=== PATIENT | male | born 1965 | race Caucasian/White ===

== ENCOUNTER 2023-03-14 14:01 | Outpatient (CLI) | payer OTHER, SELFPAY | END 2023-03-14 14:02 | disposition home or self-care (01) | PROVIDERS: PCP Plastic Surgery; Visit Provider Nurse Practitioner Family | DX: H90.3 Sensorineural hearing loss, bilateral (principal) | CPT/HCPCS: 92557; 92567 ==

== ENCOUNTER 2023-04-30 07:30 | Outpatient (RCR) | payer OTHER, SELFPAY | END 2023-06-25 23:59 | disposition home or self-care (01) | LOC: ANHAUDASC 07:30 | PROVIDERS: PCP Plastic Surgery; Visit Provider Plastic Surgery | DX: Z46.1 Encounter for fitting and adjustment of hearing aid (principal) | CPT/HCPCS: 99199; V5261 ==

== ENCOUNTER 2024-05-12 07:10 | Outpatient (CLI) | payer OTHER, SELFPAY ==
--- OUTSIDE RECORDS SUMMARY | 2024-05-12 07:15 | XMS_ITS | Clinical Summary ---
Author Organization [facility] Address [address] [place] [address] Care Team Providers Care Chief Operator Lock Tender Name Role Phone Edith Patricia NP Primary Care Provider [phone] Allergies No known active allergies Medications coenzyme Q10 10 mg capsule Take by mouth Active multivitamin with minerals tablet Take 1 tablet by mouth daily Active cholecalciferol (VITAMIN D-3) 25 mcg (1,000 unit) tablet Take 1 tablet (1,000 Units total) by mouth daily Active ezetimibe (ZETIA) 10 mg tabletIndications:Pure hypercholesterolemia TAKE 1 TABLET(10 MG) BY MOUTH DAILY 90 tablet 3 12/11/19 23 Active rosuvastatin (CRESTOR) 20 mg tabletIndications:Pure hypercholesterolemia TAKE 1 TABLET(20 MG) BY MOUTH DAILY 90 tablet 2 04/29/19 24 Active valsartan (DIOVAN) 320 mg tablet TAKE 1 TABLET(320 MG) BY MOUTH DAILY 90 tablet 2 04/29/19 24 Active Active Problems Problem Noted Date Diagnosed Date Pure hypercholesterolemia 07/29/2022 Lung nodule 01/28/2022 Vitamin D deficiency 01/28/2022 Diastolic dysfunction 01/16/2021 Nonrheumatic pulmonary valve insufficiency 01/16 Hyperlipidemia 07/15/2018 Right ventricular dilation 07/15/2018 Nonrheumatic aortic valve insufficiency 07/16/19 19 Non-rheumatic mitral regurgitation 04/08/2018 Overview (07/14/2018): Trace on echocardiogram done on 02/25/2018 Mild on echocardiogram done on 02/25/2018 Dyslipidemia 02/18/2018 Overview (07/14/2018): severe dyslipidemia, improved on rosuvastatin 20 mg daily, not quite at goal on that dose. Abnormal ECG 02/18/2018 Overview (07/14/2018): With possible old inferior infarction on his EKG done on 02/02/2018 with a normal treadmill myocardial perfusion stress test done on 03/02/2018 with clinically negative, no ischemic EKG changes and no evidence of ischemia or infarction on Myoview images wi Syncope and collapse 02/18/2018 Overview (07/14/2018): 3 episodes in the past 8 years with the last one being about a year ago I'll occurred on airplanes when he tries to reduce his oral intake before going on an airplane likely due to dehydration versus hypoglycemia. Has never occurred when not on an airplan Essential (primary) hypertension 02/18/2018 Overview (07/14/2018): Blood pressure is elevated here my office but his monitor for the most part is fairly accurate and his blood pressure readings at home are normal so for now will not treat his elevated blood pressure as his blood pressure readings at home with a validated Medical History Medical History Date Comments Hyperlipidemia Syncope Family History Medical History Relation Name Comments Diabetes Father Stroke Mother Relation Name Status Comments Father Mother Social History Tobacco Use Types Packs/Day Years Used Date Smoking Tobacco: Never Smokeless Tobacco: Never Tobacco Cessation:Counseling Given: Not Answered Alcohol Use Standard Drinks/Week Comments Yes 0 (1 standard drink = 0.6 oz pur e alcohol) rarely Personal Safety Answer Date Recorded Getting School Help Needed Not on file 02/24 Sex and Gender Information Value Date Recorded Sex Assigned at Not on file Legal Sex 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 Gender Identity Not on file Sexual Orientation Not on file Obstetrics History Last Filed Vital Signs Vital Sign Reading Time Taken Comments Blood Pressure 142/84 02/10/2023 9:16 AM MATH TEACHER Pulse 72 02/10/2023 9:16 AM MATH TEACHER Temperature - - Respiratory Rate - - Oxygen Saturation 97% 12/18/2022 3:46 PM CDT Inhaled Oxygen Concentration - - Weight 93.4 kg (205 lb 12.8 oz) 12/18/2022 3:46 PM CDT Height 182.9 cm (6') 07/29/2022 4:12 PM CDT Body Mass Index 27.91 07/29/2022 4:12 PM CDT Plan of Treatment Health Maintenance Due Date Last Done Comments Colon Cancer Screening-Colonoscopy 1965 Depression Screening 1965 Hepatitis C Screening 1965 Prostate Cancer Screening-PSA 1965 Hepatitis B Screening 1983 Regular Well Visit/Exam 18-64 1983 Zoster Vaccine (1 of 2) 2015 Covid-19 Vaccine (2 - 2023-2 5 season) 2023 05/19/2020 Influenza Vaccine (#1) 2023 DTaP/Tdap/Td Vaccine (2 - Tdap) 10/05/2030 Pneumococcal vaccine <65 Aged Out No longer eligible based on patient's age to complete this topic Insurance [facility] Care Teams Chief Operator Lock Tender Relationship Specialty Start Date End Date Edith Patricia NP [address] [place] [id number] PCP - General Nurse Practitioner 04/19/20
--- OUTSIDE RECORDS SUMMARY | 2024-05-12 07:15 | XMS_ITS | Encounter Summary ---
Author Organization [facility] Care Team Providers Care Candle Maker Name Role Phone Lanie Carey TV TECHNICIAN Primary Care Provi raúl Edith Patricia NP Primary Care Provider [phone] Encounter Details Date Type Department Care Team (Latest Contact Info) Description 04/08/2018 Orders Only [facility]INCONV Provider, MD [facility] [address] [place] [id number] Social History Tobacco Use Types Packs/Day Years Used Date Smoking Tobacco: Never Assessed Sex and Gender Information Value Date Recorded Sex Assigned at Not on file Legal Sex Male 1:06 PM BEEF SELECTOR Gender Identity Not on file Sexual Orientation Not on file documented as of this encounter Plan of Treatment Not on file documented as of this encounter Procedures Procedure Name Priority Date/Time Associated Diagnosis Comments PROCEDURE - RESULT 04/15/2018 12 :00 AM BEEF SELECTOR documented in this encounter Results * PROCEDURE - RESULT (04/15/2018 12:00 AM BEEF SELECTOR) Narrative 04/15/2018 12:00 AM BEEF SELECTOR Ordered by an unspecified provider. Historical Provider Final Res ult documented in this encounter Visit Diagnoses Not on filedocumented in this encounter Care Teams Candle Maker Relationship Specialty Start Date End Date Lanie Carey NP [address] [place] [address] PCP - General Nurse Practitioner 08/06/18 04/18/20 Edith Patricia NP [address] [place] [id number] PCP - General Nurse Practitioner 04/19/20 documented as of this encounter
--- OUTSIDE RECORDS SUMMARY | 2024-05-12 07:15 | XMS_ITS | Data Portability ---
Author Organization [place] - [facility], Nanette Huggins Address [address] [place] [address] Assessment Encounter Date Assessment Date Assessment LastModified by Organization Details LastModified Time 01/01/2024 01/01/2024 Patient presents today for lab noted below ordered by: Dr. Aisha Jenkins Procedure explained and patient verbalized understanding of the procedure and labs to be drawn today. Venipuncture performed using aseptic technique in the side of left antecubital. Venipuncture successful on the first attempt without complications. If complications: Dressing applied to the site(s) and pressure held. No signs or symptoms of venipuncture complications observed. Lab results sent to Ordering Provider. Patient left ambulatory with no complaints of pain or discomfort voiced. Tubes drawn: 1 [place]/serum tube [id number] Not available 01/01/2024 14:10:48 01/16/2024 01/16/2024 Patient presents today for lab noted below ordered by: Dr. Aisha Jenkins Procedure explained and patient verbalized understanding of the procedure and labs to be drawn today. Venipuncture performed using aseptic technique in the side of left antecubital. Venipuncture successful on the first attempt without complications. If complications: Dressing applied to the site(s) and pressure held. No signs or symptoms of venipuncture complications observed. Lab results sent to Ordering Provider. Patient left ambulatory with no complaints of pain or discomfort voiced. Tubes drawn: 2 SST tiger tubes Not available 01/16/2024 08:31:51 04/15/2024 04/15/2024 Patient presents today for lab noted below ordered by: Procedure explained and patient verbalized understanding of the procedure and labs to be drawn today. Venipuncture performed using aseptic technique in the side of left antecubital. Venipuncture successful on the first attempt without complications. If complications: Dressing applied to the site(s) and pressure held. No signs or symptoms of venipuncture complications observed. Lab results sent to Ordering Provider. Patient left ambulatory with no complaints of pain or discomfort voiced. [id number] Not available 04/15/2024 08:39:38 Plan of Treatment Reminders Order Date Submit Date Provider Last Modified By Organization Details Last Modified Time Details Appointments None recorded. Lab CBC w/ auto diff 2024 025 [place] [facility] [address] [place], [address], 5 16:08:27 lipid panel, serum 2024 025 [place] [facility] [address] [place], [address], 5 16:08:29 unlisted lab - TSH w/reflex 2024 025 [place] [facility] [address] [place], [address], 5 16:08:33 vitamin D, 25-hydroxy, total, serum 2024 025 [place] [facility] [address] [place], [address], 5 16:08:32 uric acid, serum or plasma 2024 025 [place] [facility] [address] [place], [address], 5 16:08:33 CMP, serum or plasma 2024 025 [place] [facility] [address] [place], [address], 5 16:08:28 urinalysis, complete 2024 025 [facility]), [address] [place], [address], 5 16:08:28 vitamin B12, serum 2024 025 [facility]), [address] [place], [address], 5 16:08:34 folate, serum 2024 025 [facility]), [address] [place], [address], 5 16:08:31 magnesium, serum or plasma 2024 025 [facility]), [address] [place], [address], 5 16:08:35 hemoglobin (Hb), blood [email or web address]), [address] [place], [address], 5 08:01:00 Hepatitis C IgG Ab, qual, serum 2024 025 [facility]), [address] [place], [address], 5 16:08:30 PSA, total, serum or plasma 2024 025 [facility]), [address] [place], [address], 5 16:08:31 lipid panel, serum 2023 024 [facility]), [address] [place], [address], 4 09:08:25 CMP, serum or plasma 2023 024 [facility]), [address] [place] [address], [address], 4 09:08:25 BMP, serum or plasma 2023 024 [email or web address] [facility]), [address] [facility], [place], [address], 4 08:03:39 Referral None recorded. Procedures None recorded. Surgeries None recorded. Imaging None recorded. Medication Orders None recorded. Patient TargetsNo targets recorded. Patient InstructionsNo instructions recorded. Reason for Referral None Reported. Results Created Date Observation Date Name Description Value Unit Range Abnormal Flag Note LastModifiedBy Organization Detail LastModifiedTime 01/01/2001/02/2024 BMP7+ EGFR glucose 158 mg/dL 70-99 above high normal Not Available [facility] ([facility]) [address] [facility], [place], [address], 01/02/2024 07:08:22 01/01/2001/02/2024 BMP7+ EGFR BUN 17 mg/dL 6-24 normal Not Available [facility] ([facility]) [address] [facility], [place], [address], 01/02/2024 07:08:22 01/01/2001/02/2024 BMP7+ EGFR creatinine 1.26 mg/dL 0.76-1 .27 normal Not Available [facility] ([facility]) [address] [place], [address], 01/02/2024 07:08:22 01/01/2001/02/2024 BMP7+ EGFR eGFR 66 mL/mi n/1.7 3 >59 normal Not Available [facility] ([facility]) [address] [place], [address], 01/02/2024 07:08:22 01/01/2001/02/2024 BMP7+ EGFR sodium 141 mmol/ L 134-14 4 normal Not Available [facility] ([facility]) [address] [place], [address], 01/02/2024 07:08:22 01/01/20 24 01/02/2024 BMP7+ EGFR potassium 3.8 mmol/ L 3.5-5. 2 normal Not Available [facility] ([facility]) [address] [facility] [place], [address], 01/02/2024 07:08:22 01/01/20 24 01/02/2024 BMP7+ EGFR chloride 101 mmol/ L 96-106 normal Not Available [facility] ([facility]) [address] [facility] [place], [address], 01/02/2024 07:08:22 01/01/20 24 01/02/2024 BMP7+ EGFR carbon dioxide, total 26 mmol/ L 20-29 normal Not Available [facility] ([facility]) [address] [place], [address], 01/02/2024 07:08:22 01/16/20 24 01/17/2024 CMP14 +EGFR glucose 119 mg/dL 70-99 above high normal Not Available [facility] ([facility]) [address] [place], [address], 01/17/2024 09:08:25 01/16/20 24 01/17/2024 CMP14 +EGFR BUN 25 mg/dL 6-24 above high normal Not Available [facility] ([facility]) [address] [place], [address], 01/17/2024 09:08:25 01/16/20 24 01/17/2024 CMP14 +EGFR creatinine 1.30 mg/dL 0.76-1 .27 above high normal Not Available [facility] ([facility]) [address] [place], [address], 01/17/2024 09:08:25 01/16/20 24 01/17/2024 CMP14 +EGFR eGFR 64 mL/mi n/1.7 3 >59 normal Not Available [facility] ([facility]) [address] [facility], [place], [address], 01/17/2024 09:08:25 01/16/20 24 01/17/2024 CMP14 +EGFR BUN/creatini ne ratio 19 9-20 normal Not Available [facility]) [address] [facility], [place], [address], 01/17/2024 09:08:25 01/16/20 24 01/17/2024 CMP14 +EGFR sodium 143 mmol/ L 134-14 4 normal Not Available [facility] ([facility]) [address] [facility], [place], [address], 01/17/2024 09:08:25 01/16/20 24 01/17/2024 CMP14 +EGFR potassium 4.4 mmol/ L 3.5-5. 2 normal Not Available [facility] ([facility]) [address] [facility], [place], [address], 01/17/2024 09:08:25 01/16/20 24 01/17/2024 CMP14 +EGFR chloride 104 mmol/ L 96-106 normal Not Available [facility] ([facility]) [address] [facility], [place], [address], 01/17/2024 09:08:25 01/16/20 24 01/17/2024 CMP14 +EGFR carbon dioxide, total 23 mmol/ L 20-29 normal Not Available [facility] ([facility]) [address] [place], [address], 01/17/2024 09:08:25 01/16/20 24 01/17/2024 CMP14 +EGFR calcium 9.2 mg/dL 8.7-10 .2 normal Not Available [facility] ([facility]) [address] [place], [address], 01/17/2024 09:08:25 11/01/01/17/2024 CMP14 +EGFR protein, total 6.6 g/dL 6.0-8. 5 normal Not Available [facility] ([facility]) [address] [facility] [place], [address], 01/17/2024 09:08:25 01/16/20 24 01/17/2024 CMP14 +EGFR albumin 4.5 g/dL 3.8-4. 9 normal Not Available [facility] ([facility]) [address] [facility] [place], [address], 01/17/2024 09:08:25 01/16/20 24 01/17/2024 CMP14 +EGFR globulin, total 2.1 g/dL 1.5-4. 5 Not Available [facility] ([facility]) [address] [facility] [place], [address], 01/17/2024 09:08:25 01/16/20 24 01/17/2024 CMP14 +EGFR bilirubin, total 0.5 mg/dL 0.0-1. 2 normal Not Available [facility] ([facility]) [address] [facility] [place], [address], 01/17/2024 09:08:25 01/16/20 24 01/17/2024 CMP14 +EGFR alkaline phosphatase 87 IU/L 44-121 normal Not Available [facility]) [address] [facility] [place], [address], 01/17/2024 09:08:25 01/16/20 24 01/17/2024 CMP14 +EGFR AST (SGOT) 27 IU/L 0-40 normal Not Available [facility] ([facility]) [address] [facility] [place], [address], 01/17/2024 09:08:25 01/16/20 24 01/17/2024 CMP14 +EGFR ALT (SGPT) 28 IU/L 0-44 normal Not Available [facility] ([facility]) [address] [facility], [place], [address], 01/17/2024 09:08:25 01/16/20 24 01/17/2024 LIPID PANEL cholesterol, total 165 mg/dL 100-19 9 normal Not Available [facility] ([facility]) [address] [facility], [place], [address], 01/17/2024 09:08:25 01/16/20 24 01/17/2024 LIPID PANEL triglyceride s 71 mg/dL 0-149 normal Not Available [facility] ([facility]) [address] [place], [address], 01/17/2024 09:08:25 01/16/20 24 01/17/2024 LIPID PANEL HDL cholesterol 60 mg/dL >39 normal Not Available [facility]) [address] [place], [address], 01/17/2024 09:08:25 01/16/20 24 01/17/2024 LIPID PANEL VLDL cholesterol olga 14 mg/dL 5-40 Not Available [facility] ([facility]) [address] [place], [address], 01/17/2024 09:08:25 01/16/20 24 01/17/2024 LIPID PANEL LDL chol calc ([facility]) 91 mg/dL 0-99 Not Available [facility]) [address] [facility], [place], [address], 01/17/2024 09:08:25 01/16/20 24 01/17/2024 LIPID PANEL 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 Not Available [facility] ([facility]) [address] [place], [address], 01/17/2024 09:08:25 04/15/19 25 04/16/2024 CBC WITH DIFFE RENTI AL/PL ATELE T WBC 4.6 x10e3 /uL 3.4-10 .8 normal Not Available [facility] ([facility]) [address] [facility], [place], [address], 04/16/2024 16:08:27 04/15/19 25 04/16/2024 CBC WITH DIFFE RENTI AL/PL ATELE T RBC 5.22 x10e6 /uL 4.14-5 .80 normal Not Available [facility] ([facility]) [address] [facility], [place], [address], 04/16/2024 16:08:27 04/15/19 25 04/16/2024 CBC WITH DIFFE RENTI AL/PL ATELE T hemoglobin 15.5 g/dL 13.0-1 7.7 normal Not Available [facility] ([facility]) [address] [facility], [place], [address], 04/16/2024 16:08:27 04/15/19 25 04/16/2024 CBC WITH DIFFE RENTI AL/PL ATELE T hematocrit 47.5 % 37.5-5 1.0 normal Not Available [facility] ([facility]) [address] [place], [address], 04/16/2024 16:08:27 04/15/19 25 04/16/2024 CBC WITH DIFFE RENTI AL/PL ATELE T MCV 91 fL 79-97 normal Not Available [facility] ([facility]) [address] [place], [address], 04/16/2024 16:08:27 04/15/19 25 04/16/2024 CBC WITH DIFFE RENTI AL/PL ATELE T MCH 29.7 pg 26.6-3 3.0 normal Not Available [facility] ([facility]) [address] [facility], [place], [address], 04/16/2024 16:08:27 04/15/19 25 04/16/2024 CBC WITH DIFFE RENTI AL/PL ATELE T MCHC 32.6 g/dL 31.5-3 5.7 normal Not Available [facility] ([facility]) [address] [facility], [place], [address], 04/16/2024 16:08:27 04/15/19 25 04/16/2024 CBC WITH DIFFE RENTI AL/PL ATELE T RDW 12.6 % 11.6-1 5.4 Not Available [facility] ([facility]) [address] [facility], [place], [address], 04/16/2024 16:08:27 04/15/19 25 04/16/2024 CBC WITH DIFFE RENTI AL/PL ATELE T platelets 200 x10e3 /uL 150-45 0 normal Not Available [facility] ([facility]) [address] [facility], [place], [address], 04/16/2024 16:08:27 04/15/19 25 04/16/2024 CBC WITH DIFFE RENTI AL/PL ATELE T neutrophils 50 % not estab. normal Not Available [facility] ([facility]) [address] [facility], [place], [address], 04/16/2024 16:08:27 04/15/19 25 04/16/2024 CBC WITH DIFFE RENTI AL/PL ATELE T lymphs 37 % not estab. normal Not Available [facility] ([facility]) [address] [facility], [place], [address], 04/16/2024 16:08:27 04/15/19 25 04/16/2024 CBC WITH DIFFE RENTI AL/PL ATELE T monocytes 8 % not estab. normal Not Available [facility] ([facility]) [address] [facility], [place], [address], 04/16/2024 16:08:27 04/15/19 25 04/16/2024 CBC WITH DIFFE RENTI AL/PL ATELE T eos 4 % not estab. normal Not Available [facility] ([facility]) [address] [facility], [place], [address], 04/16/2024 16:08:27 04/15/19 25 04/16/2024 CBC WITH DIFFE RENTI AL/PL ATELE T basos 1 % not estab. 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 0 normal Not Available [facility] ([facility]) [address] [place], [address], 04/16/2024 16:08:27 04/15/19 25 04/16/2024 CBC WITH DIFFE RENTI AL/PL ATELE T lymphs (absolute) 1.7 x10e3 /uL 0.7-3. 1 normal Not Available [facility] ([facility]) [address] [place], [address], 04/16/2024 16:08:27 04/15/19 25 04/16/2024 CBC WITH DIFFE RENTI AL/PL ATELE T monocytes(ab solute) 0.4 x10e3 /uL 0.1-0. 9 normal Not Available [facility] ([facility]) [address] [place], [address], 04/16/2024 16:08:27 04/15/19 25 04/16/2024 CBC WITH DIFFE RENTI AL/PL ATELE T eos (absolute) 0.2 x10e3 /uL 0.0-0. 4 normal Not Available [facility] ([facility]) [address] [facility] [place], [address], 04/16/2024 16:08:27 04/15/19 25 04/16/2024 CBC WITH DIFFE RENTI AL/PL ATELE T baso (absolute) 0.1 x10e3 /uL 0.0-0. 2 normal Not Available [facility] ([facility]) [address] [facility], [place], [address], 04/16/2024 16:08:27 04/15/19 25 04/16/2024 CBC WITH DIFFE RENTI AL/PL ATELE T immature granulocytes 0 % not estab. Not Available [facility] ([facility]) [address] [facility], [place], [address], 04/16/2024 16:08:27 04/15/19 25 04/16/2024 CBC WITH DIFFE RENTI AL/PL ATELE T immature grans (abs) 0.0 x10e3 /uL 0.0-0. 1 Not Available [facility] ([facility]) [address] [facility], [place], [address], 04/16/2024 16:08:27 04/15/19 25 04/16/2024 CBC WITH DIFFE RENTI AL/PL ATELE T NRBC PLATE KEEPER Not Available [facility] ([facility]) [address] [facility], [place], [address], 04/16/2024 16:08:27 04/15/19 25 04/16/2024 CBC WITH DIFFE RENTI AL/PL ATELE T hematology comments: PLATE KEEPER Not Available [facility] ([facility]) [address] [facility], [place], [address], 04/16/2024 16:08:27 04/15/19 25 04/16/2024 COMP. METAB OLIC PANEL (14) glucose 115 mg/dL 70-99 above high normal Not Available [facility] ([facility]) [address] [facility], [place], [address], 04/16/2024 16:08:28 04/15/19 25 04/16/2024 COMP. METAB OLIC PANEL (14) BUN 20 mg/dL 6-24 normal Not Available [facility] ([facility]) [address] [facility] [place], [address], 04/16/2024 16:08:28 04/15/19 25 04/16/2024 COMP. METAB OLIC PANEL (14) creatinine 1.37 mg/dL 0.76-1 .27 above high normal Not Available [facility] ([facility]) [address] [facility] [place], [address], 04/16/2024 16:08:28 04/15/19 25 04/16/2024 COMP. METAB OLIC PANEL (14) eGFR 60 mL/mi n/1.7 3 >59 normal Not Available [facility] ([facility]) [address] [facility] [place], [address], 04/16/2024 16:08:28 04/15/19 25 04/16/2024 COMP. METAB OLIC PANEL (14) BUN/creatini ne ratio 15 9-20 normal Not Available [facility] ([facility]) [address] [facility] [place], [address], 04/16/2024 16:08:28 04/15/19 25 04/16/2024 COMP. METAB OLIC PANEL (14) sodium 142 mmol/ L 134-14 4 normal Not Available [facility] ([facility]) [address] [facility] [place], [address], 04/16/2024 16:08:28 04/15/19 25 04/16/2024 COMP. METAB OLIC PANEL (14) potassium 4.7 mmol/ L 3.5-5. 2 normal Not Available [facility] ([facility]) [address] [place] [place], [address], 04/16/2024 16:08:28 04/15/19 25 04/16/2024 COMP. METAB OLIC PANEL (14) chloride 104 mmol/ L 96-106 normal Not Available [facility] ([facility]) [address] [facility] [place], [address], 04/16/2024 16:08:28 04/15/19 25 04/16/2024 COMP. METAB OLIC PANEL (14) carbon dioxide, total 22 mmol/ L 20-29 normal Not Available [facility] ([facility]) [address] [facility] [place], [address], 04/16/2024 16:08:28 04/15/19 25 04/16/2024 COMP. METAB OLIC PANEL (14) calcium 9.2 mg/dL 8.7-10 .2 normal Not Available [facility] ([facility]) [address] [facility] [place], [address], 04/16/2024 16:08:28 04/15/19 25 04/16/2024 COMP. METAB OLIC PANEL (14) protein, total 6.5 g/dL 6.0-8. 5 normal Not Available [facility] ([facility]) [address] [place] [place], [address], 04/16/2024 16:08:28 04/15/19 25 04/16/2024 COMP. METAB OLIC PANEL (14) albumin 4.6 g/dL 3.8-4. 9 normal Not Available [facility] ([facility]) [address] [place] [place], [address], 04/16/2024 16:08:28 04/15/19 25 04/16/2024 COMP. METAB OLIC PANEL (14) globulin, total 1.9 g/dL 1.5-4. 5 Not Available [facility] ([facility]) [address] [place], [address], 04/16/2024 16:08:28 04/15/19 25 04/16/2024 COMP. METAB OLIC PANEL (14) bilirubin, total 0.4 mg/dL 0.0-1. 2 normal Not Available [facility] ([facility]) [address] [place], [address], 04/16/2024 16:08:28 04/15/19 25 04/16/2024 COMP. METAB OLIC PANEL (14) alkaline phosphatase 83 IU/L 44-121 normal Not Available [facility] ([facility]) [address] [place], [address], 04/16/2024 16:08:28 04/15/19 25 04/16/2024 COMP. METAB OLIC PANEL (14) AST (SGOT) 26 IU/L 0-40 normal Not Available [facility] ([facility] [address] [facility], [address], 04/16/2024 16:08:28 04/15/19 25 04/16/2024 COMP. METAB OLIC PANEL (14) ALT (SGPT) 28 IU/L 0-44 normal Not Available [facility] ([facility]) [address] [facility] [place], [address], 04/16/2024 16:08:28 04/15/19 25 04/16/2024 URINA LYSIS , COMPL ETE specific gravity 1.006 1.005- 1.030 normal Not Available [facility] ([facility]) [address] [facility] [place], [address], 04/16/2024 16:08:28 04/15/19 25 04/16/2024 URINA LYSIS , COMPL ETE pH 6.5 5.0-7. 5 normal Not Available [facility] ([facility] [address] [place], [address], 04/16/2024 16:08:28 04/15/19 25 04/16/2024 URINA LYSIS , COMPL ETE urine-color Yellow yellow Not Available [facility] ([facility]) [address] [facility], [place], [address], 04/16/2024 16:08:28 04/15/19 25 04/16/2024 URINA LYSIS , COMPL ETE appearance Clear clear Not Available [facility] ([facility]) [address] [facility], [place], [address], 04/16/2024 16:08:28 04/15/19 25 04/16/2024 URINA LYSIS , COMPL ETE WBC esterase Negati ve negati ve Not Available [facility] ([facility]) [address] [facility], [place], [address], 04/16/2024 16:08:28 04/15/19 25 04/16/2024 URINA LYSIS , COMPL ETE protein Negati ve negati ve/tra ce Not Available [facility] ([facility]) [address] [facility], [place], [address], 04/16/2024 16:08:28 04/15/19 25 04/16/2024 URINA LYSIS , COMPL ETE glucose Negati ve negati ve Not Available [facility] ([facility]) [address] [facility], [place], [address], 04/16/2024 16:08:28 04/15/19 25 04/16/2024 URINA LYSIS , COMPL ETE ketones Negati ve negati ve Not Available [facility] ([facility]) [address] [facility], [place], [address], 04/16/2024 16:08:28 04/15/19 25 04/16/2024 URINA LYSIS , COMPL ETE occult blood Negati ve negati ve Not Available [facility] ([facility]) [address] [facility], [place], [address], 04/16/2024 16:08:28 04/15/19 25 04/16/2024 URINA LYSIS , COMPL ETE bilirubin Negati ve negati ve Not Available [facility] ([facility]) [address] [facility], [place], [address], 04/16/2024 16:08:28 04/15/1904/16/2024 URINA LYSIS , COMPL ETE urobilinogen ,semi-qn 0.2 mg/dL 0.2-1. 0 normal Not Available [facility] ([facility]) [address] [facility], [place], [address], 04/16/2024 16:08:28 04/15/1904/16/2024 URINA LYSIS , COMPL ETE nitrite, urine Negati ve negati ve Not Available [facility] ([facility]) [address] [facility], [place], [address], 04/16/2024 16:08:28 04/15/19 25 04/16/2024 URINA LYSIS , COMPL ETE microscopic examination Commen t Micro scopi c follo ws if indic ated. Not Available [facility] ([facility]) [address] [facility], [place], [address], 04/16/2024 16:08:28 04/15/1904/16/2024 URINA LYSIS , COMPL ETE microscopic examination See below: Micro scopi c was indic ated and was perfo rmed. Not Available [facility] ([facility]) [address] [facility], [place], [address], 04/16/2024 16:08:28 04/15/1904/16/2024 URINA LYSIS , COMPL ETE WBC None seen /hpf 0 - 5 Not Available [facility] ([facility]) [address] [facility], [place], [address], 04/16/2024 16:08:28 04/15/19 25 04/16/2024 URINA LYSIS , COMPL ETE RBC None seen /hpf 0 - 2 Not Available [facility] ([facility]) [address] [facility], [place], [address], 04/16/2024 16:08:28 04/15/19 25 04/16/2024 URINA LYSIS , COMPL ETE epithelial cells (non renal) None seen /hpf 0 - 10 Not Available [facility] ([facility]) [address], [place], [address], 04/16/2024 16:08:28 04/15/19 25 04/16/2024 URINA LYSIS , COMPL ETE epithelial cells (renal) PLATE KEEPER Not Available [facility] ([facility]) [address], [place], [address], 04/16/2024 16:08:28 04/15/19 25 04/16/2024 URINA LYSIS , COMPL ETE casts None seen /lpf none seen Not Available [facility] ([facility]) [address] [facility], [place], [address], 04/16/2024 16:08:28 04/15/19 25 04/16/2024 URINA LYSIS , COMPL ETE cast type PLATE KEEPER Not Available [facility] ([facility]) [address] [facility], [place], [address], 04/16/2024 16:08:28 04/15/19 25 04/16/2024 URINA LYSIS , COMPL ETE crystals PLATE KEEPER Not Available [facility] ([facility]) [address] [facility], [place], [address], 04/16/2024 16:08:28 04/15/1904/16/2024 URINA LYSIS , COMPL ETE crystal type PLATE KEEPER Not Available [facility] [address] [facility], [place], [address], 04/16/2024 16:08:28 04/15/19 25 04/16/2024 URINA LYSIS , COMPL ETE mucus threads PLATE KEEPER Not Available [facility] ([facility]) [address] [facility], [place], [address], 04/16/2024 16:08:28 04/15/19 25 04/16/2024 URINA LYSIS , COMPL ETE bacteria None seen none seen/f ew Not Available [facility] ([facility]) [address] [facility], [place], [address], 04/16/2024 16:08:28 04/15/19 25 04/16/2024 URINA LYSIS , COMPL ETE yeast PLATE KEEPER Not Available [facility] ([facility]) [address] [facility], [place], [address], 04/16/2024 16:08:28 04/15/19 25 04/16/2024 URINA LYSIS , COMPL ETE trichomonas PLATE KEEPER Not Available [facility] ([facility]) [address] [facility], [place], [address], 04/16/2024 16:08:28 04/15/19 25 04/16/2024 URINA LYSIS , COMPL ETE comment PLATE KEEPER Not Available [facility] ([facility]) [address] [facility], [place], [address], 04/16/2024 16:08:28 04/15/19 25 04/16/2024 LIPID PANEL cholesterol, total 160 mg/dL 100-19 9 normal Not Available [facility] ([facility]) [address] [facility], [place], [address], 04/16/2024 16:08:29 04/15/19 25 04/16/2024 LIPID PANEL triglyceride s 102 mg/dL 0-149 normal Not Available [facility] ([facility]) [address] [facility], [place], [address], 04/16/2024 16:08:29 04/15/19 25 04/16/2024 LIPID PANEL HDL cholesterol 54 mg/dL >39 normal Not Available [facility] ([facility]) [address] [facility], [place], [address], 04/16/2024 16:08:29 04/15/19 25 04/16/2024 LIPID PANEL VLDL cholesterol olga 19 mg/dL 5-40 Not Available [facility] ([facility]) [address] [facility], [place], [address], 04/16/2024 16:08:29 04/15/19 25 04/16/2024 LIPID PANEL LDL chol calc ([facility]) 87 mg/dL 0-99 Not Available [facility] ([facility]) [address] [facility], [place], [address], 04/16/2024 16:08:29 04/15/19 25 04/16/2024 LIPID PANEL 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 Not Available [facility] ([facility]) [address] [facility], [place], [address], 04/16/2024 16:08:29 04/15/19 25 04/16/2024 HCV ANTIB XENIA RFX TO QUANT PCR HCV Ab Non Reacti ve non reacti ve Not Available [facility] ([facility]) [address] [facility], [place], [address], 04/16/2024 16:08:30 04/15/1904/16/2024 HCV ANTIB XENIA RFX TO QUANT PCR interpretati on: Commen t Not infec anne with HCV unles s early or acute infec tion is suspe cted (whic h may be delay ed in an immun ocomp romis ed indiv idual ), or other evide nce exist s to indic ate HCV infec tion. Not Available [facility] ([facility]) [address] [facility], [place], [address], 04/16/2024 16:08:30 04/15/1904/16/2024 FOLAT E (FOLI C ACID) , SERUM folate (folic acid), serum 11.2 NG/mL >3.0 normal A serum folat e levi ntrat ion of less than 3.1 ng/mL is consi dered to repre sent clini olga defic iency . Not Available [facility] ([facility]) [address] [facility], [place], [address], 04/16/2024 16:08:30 04/15/19 25 04/16/2024 PROST ATE-S PECIF IC AG prostate specific Ag 0.8 NG/mL 0.0-4. 0 normal Almita ECLIA metho dolog y. Accor ding to the Ameri can Urolo gical Assoc iatio n, Serum PSA shoul d decre ase and remai n at undet ectab le level s after radic al prost atect yayo. The AUA defin es bioch emica l recur rence as an initi al PSA value 0.2 ng/mL or great er follo wed by a subse quent confi rmato ry PSA value 0.2 ng/mL or great er. Value s obtai cyrus with diffe rent assay metho ds or kits canno t be used inter valdez eably . Resul ts canno t be inter prete d as absol mariana evide nce of the prese nce or absen ce of formerly [facility] t[place] se. Not Available [facility] ([facility]) [address] [facility], [place], [address], 04/16/2024 16:08:31 04/15/19 25 04/16/2024 VITAM IN D, 25-HY DROXY vitamin D, 25-hydroxy 25.8 NG/mL 30.0-1 00.0 below low normal Vitam in D defic iency has been defin ed by the Insti tute of Medic ine and an Endoc rine Socie ty pract ice guide line as a level of serum 25-OH vitam in D less than 20 ng/mL (1,2) . The Endoc rine Socie ty went on to furth er defin e vitam in D insuf ficie ncy as a level betwe en 21 and 29 ng/mL (2). 1. IOM (Inst itute of Medic ine). 2010. Dieta ry refer ence intak es for calci um and D. Jonatan ogden [place]: The Natio nal [facility] . 2. Jamey emery MF, Loni sanchez [place], Nohelia off-F errar i HERRMANN, et al. Evalu ation , treat ment, and preve ntion of vitam in D defic iency : an Endoc rine Socie ty clini olga pract ice guide line. JCEM. 2010; 96(7) :1911 -30. Not Available [facility] ([facility]) [address] [place], [address], 04/16/2024 16:08:32 04/15/19 25 04/16/2024 TSH W/REF GABRIEL TSH 3.990 uIU/m L 0.450- 4.500 normal Not Available [facility] ([facility]) [address] [place], [address], 04/16/2024 16:08:33 04/15/19 25 04/16/2024 URIC ACID uric acid 6.5 mg/dL 3.8-8. 4 normal Thera praveen butt t for gout patie nts: <6.0 Not Available [facility] ([facility]) [address] [place], [address], 04/16/2024 16:08:33 04/15/19 25 04/16/2024 VITAM IN B12 vitamin B12 718 pg/mL 232-12 45 normal Not Available [facility] ([facility]) [address] [place], [address], 04/16/2024 16:08:34 04/15/19 25 04/16/2024 MAGNE SIUM magnesium 2.1 mg/dL 1.6-2. 3 normal Not Available [facility] ([facility]) [address] [place], [address], 04/16/2024 16:08:35 Result Notes None recorded. Problems Name Problem SNOMED Code Status Onset Date Resolution Date Notes Provider Name and Address Organization Details Recorded Time Tinnitus 17615594 Active 2017 Tinnitus ; PROBABIL ITY: 0 Confir mation: Confirme d Annota tedDispl ay: Tinnitus Classif ication: Medical Not Available [facility] 4 04:25:33 History of non-drug allergy 423707690 Active 2022 H/O: non-drug allergy; PROBABIL ITY: 0 SENSIT IVITY: 0.0 Conf irmation : Confirme d Annota tedDispl ay: H/O seasonal allergie s Classi fication : Medical Lifecycl eDateTim e: 14:01:00 +00:00 Not Available [facility] 4 04:25:33 History taken NOS Completed 201704/29/2023 No Chronic Problems ; PROBABIL ITY: 0 Annota tedDispl ay: No Chronic Problems Not Available [facility] 4 04:25:33 Error entry deleted [id number] Completed 201604/29/2023 None; PROBABIL ITY: 0 Confir mation: Confirme d Annota tedDispl ay: None Cla ssificat ion: Medical Not Available [facility] 4 04:25:33 Malignan t neoplasm of skin 187187217 Completed 201704/29/2023 Skin cancer; PROBABIL ITY: 0 Confir mation: Confirme d Annota tedDispl ay: Skin cancer C lassific ation: Medical Not Available [facility] 4 04:25:33 Otitis externa 4138076 Completed 202204/29/2023 Otitis externa; PROBABIL ITY: 0 SENSIT IVITY: 0.0 Conf irmation : Confirme d cancel Reason: Annotat edDispla y: Otitis externa of left ear Clas sificati on: Medical Lifecycl eDateTim e: 17:23:23 +00:00 Not Available [facility] 4 04:25:33 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 Medical Equipment None Reported. Allergies Allergen ID Allergen Name Allergen Category Reaction Reaction Severity Criticality Documentation Date Start Date Code Code System Note Provider Name and Address Organization Details Recorded Time 556705 No Allergy Informati on Available Not available Not available Not available Not available 04/29/2023 90093 UNK Comme nt: React ion Class : Aller gy; Not Available [facility] 4 02:54:11 No known drug allergies Medications Name Sig Start Date Stop Date Status Note LastModified by Organization Details LastModified Time Augmentin 875 mg-125 mg tablet 12/02 completed Duration : 7 Durati onUnit: day(s) S topType: Physicia n Stop Osmel gIdentif icationN umber: [id number] S cheduled PRN: No Total Refills: 0 Consta ntIndica tor: Yes acti ve_statu s_dt_tm: 3 12:30:48 PM Not Available Not Available Not Available Claritin 10 mg tablet 12/02 completed StopType : Physicia n Stop Osmel gIdentif icationN umber: [id number] N extDoseD ate: 3 10:00:00 AM Const antIndic ator: No CSASc hedule: 0.0 acti ve_statu s_dt_tm: 3 9:06:53 AM Not Available Not Available Not Available acetamino phen 300 mg-codein e 30 mg tablet TAKE 1 TO 2 TABLETS BY MOUTH FOUR TIMES DAILY NEEDED FOR PAIN active Not Available Not Available No t Available Multiple Vitamins tablet 2016 active StopType : Soft Stop Osmel gIdentif icationN umber: [id number] S cheduled PRN: No Total Refills: 0 Consta ntIndica tor: Yes CSAS chedule: 0.0 acti ve_statu s_dt_tm: 11/20/2016 1:58:14 PM Not Available Not Available Not Available valsartan 320 mg tablet TAKE 1 TABLET BY MOUTH EVERY DAY active Not Available Not Available No t Available mupirocin 2 % topical ointment APPLY TO WOUND ON RIGHT HAND TWICE DAILY active Not Available Not Available No t Available valsartan 160 mg tablet 2022 active StopType : Soft Stop Osmel gIdentif icationN umber: [id number] T otalRefi lls: 0 Consta ntIndica tor: Yes CSAS chedule: 0.0 acti ve_statu s_dt_tm: 3 12:19:40 PM Not Available Not Available Not Available Vitamins and Minerals tablet 2016 active StopType : Soft Stop Osmel gIdentif icationN umber: [id number] S cheduled PRN: No Total Refills: 0 Consta ntIndica tor: Yes CSAS chedule: 0.0 acti ve_statu s_dt_tm: 11/20/2016 1:58:15 PM Not Available Not Available Not Available ezetimibe 10 mg tablet TAKE 1 TABLET BY MOUTH EVERY DAY active Not Available Not Available No t Available Ciprodex 0.3 %-0.1 % ear drops,marlon pension 2022 active StopType : Soft Stop Osmel gIdentif icationN umber: [id number] T otalRefi lls: 0 Consta ntIndica tor: Yes CSAS chedule: 0.0 acti ve_statu s_dt_tm: 3 12:15:53 PM Not Available Not Available Not Available rosuvasta tin 20 mg tablet TAKE 1 TABLET BY MOUTH EVERY DAY active Not Available Not Available No t Available Boostrix Tdap 2.5 Lf unit-8 mcg-5 Lf/0.5 mL intramusc ular syringe 10/05 completed StopType : Physicia n Stop Osmel gIdentif icationN umber: [id number] N extDoseD ate: 1 7:49:00 AM Const antIndic ator: No CSASc hedule: 0.0 acti ve_statu s_dt_tm: 1 7:49:28 AM Not Available Not Available Not Available CoQ10 2022 active StopType : Soft Stop Osmel gIdentif icationN umber: [id number] T otalRefi lls: 0 Consta ntIndica tor: Yes CSAS chedule: 0.0 acti ve_statu s_dt_tm: 3 12:08:42 PM Not Available Not Available Not Available Centrum 2016 active StopType : Soft Stop Osmel gIdentif icationN umber: [id number] T otalRefi lls: 0 Consta ntIndica tor: Yes CSAS chedule: 0.0 acti ve_statu s_dt_tm: 11/20/2016 1:58:15 PM Not Available Not Available Not Available B-Complex With B-12 2016 active StopType : Soft Stop Osmel gIdentif yolitionN umber: [id number] T otalRefi lls: 0 Consta ntIndica tor: Yes CSAS chedule: 0.0 acti ve_statu s_dt_tm: 11/20/2016 1:58:15 PM Not Available Not Available Not Available Shingrix (PF) 50 mcg/0.5 mL intramusc ular suspensio n, kit 09/29 completed StopType : Physicia n Stop Osmel gIdentif yolitionN umber: [id number] N extDoseD ate: 9 8:14:00 AM Const antIndic ator: No CSASc hedule: 0.0 acti ve_statu s_dt_tm: 9 8:17:18 AM Not Available Not Available Not Available Vitals None Recorded Social History None recorded. Functional Status None recorded. Mental Status None recorded. Family History Nothing Reported Notes:Father: Diabetes melli tus type II Grandfather (M): Coronary heart disease Grandmother (M): Alzheimer's disease Grandmother (P): Diabetes mellitus type II Mother: Alzheimer's disease, Thrombosis, Dementia, [place] - Breast cancer Medical History No medical history recorded. Immunizations Vaccine Type Date Status Note Provider Nam e and Address Organization Details Recorded Time Tdap 10/05/2020 completed Not Available [facility] 04/29/2023 04:12:00 Past Encounters Encounter ID Performer Location Encounter Start Date Encounter Closed Date Diagnosis/Indication Diagnosis SNOMED-CT Code Diagnosis ICD10 Code Diagnosis Note [id number] Tiff Stevens [facility] x - [address] [address] 01/01/2024 13:54:52 01/01/2024 14:18:42 Essential hypertension 07181694 I10 [id number] Tiff Stevens [facility] x [address] [address] 01/16/2024 08:29:32 01/16/2024 08:41:54 Pure hypercholesterolemia 767240018 E78.00 Essential hypertension 34335021 I10 [id number] Snow ePña [address] [address] 04/15/2024 08:12:59 04/15/2024 09:58:52 Mixed hyperlipidemia 204085808 E78.2 Screening for malignant neoplasm of prostate 105298394 Z12.5 Health Concerns Section Related Observation LastModified by Organization Detai ls LastModified Time None Recorded Concern Status LastModified by Organization Details LastModified Time None Recorded Advance Directives Directive None Recorded Payers Encounter Date Sequence Insurance Name Policy Number Policy Son Covered Member ID Son Member ID Guarantor Name 01/01/2024 1 [employer] - ALL [employer] (PPO) [id number] Juan Antonio A Hopper [id number] Juan Antonio A Hopper 01/16/2024 1 [employer] - [place] [employer] (PPO) [id number] Juan Antonio A Hopper [id number] Juan Antonio A Hopper 04/15/2024 1 [employer] - [employer] - ALL PLANS (PPO) [id number] Juan Antonio A Hopper [id number] Juan Antonio A Hopper
--- OUTSIDE RECORDS SUMMARY | 2024-05-12 07:16 | XMS_ITS | Referral Summary ---
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 Gender Identity Not on file Sexual Orientation Not on file Last Filed Vital Signs Vital Sign Reading Time Taken Comments Blood Pressure 142/84 02/10/2023 9:16 AM CHEST PAIN COORDINATOR Pulse 72 02/10/2023 9:16 AM CHEST PAIN COORDINATOR Temperature - - Respiratory Rate - - Oxygen Saturation 97% 12/18/2022 3:46 PM CDT Inhaled Oxygen Concentration - - Weight 93.4 kg (205 lb 12.8 oz) 12/18/2022 3:46 PM CDT Height 182.9 cm (6') 07/29/2022 4:12 PM CDT Body Mass Index 27.91 07/29/2022 4:12 PM CDT Plan of Treatment Not on file Insurance Care Teams Croze Cutter Helper Relationship Specialty Start Date End Date Edith Patricia NP [address] [place] [address] PCP - General Nurse Practitioner 04/19/20
== END 2024-05-12 07:11 | disposition home or self-care (01) ==
PROVIDERS: PCP Plastic Surgery; Visit Provider Nurse Practitioner Family
DX: H90.3 Sensorineural hearing loss, bilateral (principal); H93.13 Tinnitus, bilateral; H61.23 Impacted cerumen, bilateral
CPT/HCPCS: 92557; 92567